=== PATIENT | male | born 1945 | race Caucasian/White ===

== ENCOUNTER 2016-07-20 10:34 | Outpatient (CLI) | payer MEDICARE, OTHER | END 2016-07-20 10:35 | disposition home or self-care (01) | DX: J98.4 Other disorders of lung (principal); J45.909 Unspecified asthma, uncomplicated ==

== ENCOUNTER 2016-07-24 23:42 | Emergency (ER) | payer MEDICARE, OTHER ==
[2016-07-25] MEDS ORDERED: IOPAMIDOL-300 100 ML VIAL IVP ONE (03:03)
[2016-07-25] MEDS ORDERED: ASPIRIN CHEW 81 MG TABLET PO STA (03:53)
[2016-07-25] MEDS ORDERED: HEPARIN 5,000 UNIT/ML VIAL IVP STA ×2 (04:00→04:01)
[2016-07-25] MEDS ORDERED: HEPARIN 25,000 UNITS/500 ML 500 ML IV STA (04:01)
[2016-07-25] MEDS ORDERED: ASPIRIN CHEW 81 MG TABLET ONE (04:04)
[2016-07-25] MEDS ORDERED: HEPARIN 5,000 UNIT/ML VIAL ONE (04:04)
[2016-07-25] MEDS ORDERED: HEPARIN 25,000 UNITS/500 ML 500 ML IV ONE (04:05)
[2016-07-25] MEDS ORDERED: SODIUM CHLORIDE 0.9% 500 ML IV STA (08:32)
== END 2016-07-25 08:56 | disposition short-term general hospital (02) ==
DX: R07.89 Other chest pain (principal); R01.1 Cardiac murmur, unspecified; I25.10 Atherosclerotic heart disease of native coronary artery without angina pectoris; I71.2 Thoracic aortic aneurysm, without rupture; I10 Essential (primary) hypertension
CPT/HCPCS: 36415; 71020; 71275; 80053; 83690; 84484; 85025; 93005; 93010; 96365; 96366; 96375; 99285; A9270; Q9967

== ENCOUNTER 2016-07-25 09:06 | Outpatient (CLI) | payer MEDICARE, OTHER | END 2016-07-25 09:07 | disposition short-term general hospital (02) | DX: R07.9 Chest pain, unspecified (principal) | CPT/HCPCS: A0425; A0426 ==

== ENCOUNTER 2016-08-05 08:11 | Emergency (ER) | payer MEDICARE, OTHER ==
[2016-08-05 08:25] VITALS: BP 140/84
[2016-08-05] MEDS ORDERED: HYDROcod/ACETAM 5/325 MG TABLET PO STA (08:34)
[2016-08-05] MEDS ORDERED: HYDROcod/ACETAM 5/325 MG TABLET ONE (08:38)
--- NOTE | 2016-08-05 08:56 | ED Physician Documentation ---
PD HPI NECK PAIN - Stated complaint Stated Complaint: NECK PX - Chief complaint Chief Complaint: General - History obtained from History obtained from: Patient, Family (Spouse) - History of Present Illness Timing - onset: How many days ago (4) Timing - duration: Days (4) Timing - details: Waxing and waning Location: Mid, Right, Left Quality: Aching, Similar to prior episodes Associated symptoms: No: Fever, Weakness, Numbness Worsened by: Movement Recently seen: Surgery (Cardiac Cath 11 days ago.) - Additional information Additional information: The patient is a 70-year-old male who complains of "muscle tightness" of his neck. His symptoms started 4 days ago and they have been waxing and waning since onset. He denies any recent injury. He reports having similar pain intermittently in the past, but never this bad. He denies, numbness or weakness , or headache currently. He had a headache yesterday that was relieved with Naprosyn. 11 days ago he underwent cardiac catheterization, and his anti- hypertensive medication was changed from lisinopril to diltiazem. He normally takes Aleve on a daily basis, but his galley boy instructed him to discontinue Aleve. Review of Systems Constitutional: denies: Fever Ears: denies: Tinnitus/ringing Nose: denies: Congestion Throat: denies: Sore throat Cardiac: denies: Chest pain / pressure, Palpitations Respiratory: denies: Dyspnea, Cough GI: denies: Abdominal Pain, Nausea, Vomiting : denies: Dysuria Skin: denies: Rash Musculoskeletal: reports: Neck pain. denies: Back pain, Extremity pain, Extremity swelling Neurologic: denies: Focal weakness, Numbness, Headache PD PAST MEDICAL HISTORY - Past Medical History Past Medical History: Yes Cardiovascular: Hypertension, Coronary artery disease, Valve disorder, Other : Incontinence Other Past Medical History: aortic aneurysm - Past Surgical History Past Surgical History: Yes - Present Medications Home Medications: Ambulatory Orders Medication Instructions Recorded Confirmed Celecoxib [CeleBREX] 200 mg PO DAILY PRN 10/16/15 07/25/16 Cholecalciferol (Vitamin D3) 1,000 unit PO DAILY 10/16/15 07/25/16 [Vitamin D3] Cholestyramine [Questran] 4 mg PO DAILY 10/16/15 07/25/16 Levalbuterol Tartrate [Xopenex Hfa] 1 puffs INH DAILY 10/16/15 07/25/16 Vitamin B Complex 1 tab PO DAILY 10/16/15 08/05/16 Mometasone/Formoterol [Dulera 200 2 puffs PO BID 07/25/16 08/05/16 Mcg/5 Mcg Inhaler] HYDROcod/ACETAM 5/325 [[place] 5/325] 1 - 2 ea PO Q6H PRN #20 tablet 08/05/16 diltiaZEM [Cardizem] 08/05/16 - Allergies Allergies/Adverse Reactions: Allergies Allergy/AdvReac Type Severity Reaction Status Date / Time No Known Drug Allergies Allergy Verified 10/16/15 20:07 - Living Situation Living Situation: reports: With spouse/s.o. Living Arrangement: reports: At home - Social History Does the pt smoke?: No Smoking Status: Never smoker Does the pt drink ETOH?: No Does the pt have substance abuse?: No - Immunizations Immunizations are current?: Yes - POLST Patient has POLST: No PD ED PE NORMAL - Vitals Vital signs reviewed: Yes (Borderline hypertension initially.) - General General: Alert and oriented X 3, Well developed/nourished - HEENT HEENT: Atraumatic, EOMI, Pharynx benign - Neck Neck: Supple, no meningeal sign, No bony TTP, No adenopathy, No JVD, Other ( Holding his head straight forward. Mild paracervical muscular tenderness to palpation bilaterally. No tenderness to palpation over the spinous processes. He is able to rotate his head about 20 each direction. There is no meningismus.) - Cardiac Cardiac: RRR - Respiratory Respiratory: No respiratory distress, Clear bilaterally - Abdomen Abdomen: Soft, Non tender - Back Back: No CVA TTP, No spinal TTP - Derm Derm: No rash - Extremities Extremities: No edema, No calf tenderness / cord - Neuro Neuro: Alert and oriented X 3, No motor deficit, Normal speech Results - Vitals Vitals: Oxygen O2 Source Room air PD MEDICAL DECISION MAKING - ED course Complexity details: considered differential, d/w patient, d/w family ED course: The patient's presentation is most consistent with cervical muscle strain. There is no clinical evidence of cardiac etiology for the patient's neck pain, and no meningismus, or evidence of central nervous system etiology or cervical spinous bony abnormality. Treatment in the emergency department included administration of Vicodin, one tablet. He is being discharged with prescription for Vicodin, 20 tablets. I discussed with him and his symptomatic treatment, outpatient follow-up, as well as potentially worrisome signs or symptoms that should prompt reevaluation in the emergency department. Departure - Departure Disposition: 01 Home, Self Care Clinical Impression: Cervical muscle strain Qualifiers: Encounter type: initial encounter Qualified Code(s): S16.1XXA - Strain of muscle, fascia and tendon at neck level, initial encounter Condition: Stable Instructions: ED Neck Pain No Trauma Follow-Up: Gabby Sheriff MD [Primary Care Provider] - Prescriptions: HYDROcod/ACETAM 5/325 [[place] 5/325] 1 - 2 ea PO Q6H PRN #20 tablet PRN Reason: Pain Comments: Apply icepack to your sore areas intermittently over the next 3 or 4 days. You can use Vicodin as prescribed if needed for pain. When not using Vicodin, you can use acetaminophen/Tylenol. Follow up with your primary physician within one to 2 weeks. Call to schedule an appointment. Return to the emergency department if you develop increasing pain in your neck, or otherwise worsening symptoms. Discharge Date/Time: 08/05/16 09:05
== END 2016-08-05 09:05 | disposition home or self-care (01) ==
LOC: ED 08:11
DX: S16.1XXA Strain of muscle, fascia and tendon at neck level, initial encounter (principal); X58.XXXA Exposure to other specified factors, initial encounter; I10 Essential (primary) hypertension; I25.10 Atherosclerotic heart disease of native coronary artery without angina pectoris; Z98.61 Coronary angioplasty status
CPT/HCPCS: 99283; A9270

== ENCOUNTER 2016-09-21 14:50 | Outpatient (CLI) | payer MEDICARE, OTHER ==
[2016-09-21 15:16] LABS: CALCIUM 9.4 mg/dL (8.5-10.3); CREATININE 1.3 mg/dL (0.6-1.2); POTASSIUM 4.4 mmol/L (3.5-5.0)
== END 2016-09-21 14:51 | disposition home or self-care (01) ==
LOC: LAB 14:50
PROVIDERS: ATTEND Nurse Practitioner Family
DX: R06.02 Shortness of breath (principal)
CPT/HCPCS: 36415; 80048; 83880

== ENCOUNTER 2016-09-27 11:30 | Outpatient (CLI) | payer MEDICARE, OTHER ==
[2016-09-27 12:18] LABS: CALCIUM 9.1 mg/dL (8.5-10.3); CREATININE 1.2 mg/dL (0.6-1.2); POTASSIUM 4.1 mmol/L (3.5-5.0)
== END 2016-09-27 11:31 | disposition home or self-care (01) ==
LOC: LAB 11:30
PROVIDERS: ATTEND Nurse Practitioner Family
DX: R06.02 Shortness of breath (principal)
CPT/HCPCS: 36415; 80048; 83880

== ENCOUNTER 2017-10-14 07:47 | Outpatient (CLI) | payer MEDICARE, OTHER ==
[2017-10-14 08:42] LABS: HGB - HEMOGLOBIN 15.7 g/dL (14.0-18.0); MEAN CORPUSCULAR HEMOGLOBIN 30.7 pg (27.0-31.0); MEAN CORPUSCULAR HGB CONC 33.4 g/dL (32.0-36.0); MEAN PLATELET VOLUME 7.5 fL (7.4-11.4); RED BLOOD COUNT 5.12 10^6/uL (4.70-6.10); RED CELL DISTRIBUTION WIDTH 12.9 % (12.0-15.0)
[2017-10-14 08:52] LABS: ALBUMIN 3.9 g/dL (3.2-5.5); ALBUMIN/GLOBULIN RATIO 1.4 (1.0-2.2); ALKALINE PHOSPHATASE 69 IU/L (42-121); ALT ALANINE AMINOTRANSFERASE 14 IU/L (10-60); AST ASPARTATE AMINOTRANSFERASE 22 IU/L (10-42); BUN - BLOOD UREA NITROGEN 19 mg/dL (6-20); CARBON DIOXIDE - CO2 25 mmol/L (21-32); CHLORIDE 105 mmol/L (101-111); CHOL/HDL RATIO 3.5 (<5.0); CHOLESTEROL 195 mg/dL; CREATININE 1.2 mg/dL (0.6-1.2); GFR - MDRD 60 (>89); GLUCOSE 91 mg/dL (70-100); HDL CHOLESTEROL 55 mg/dL; LDL CHOLESTEROL,CALCULATED 125 mg/dL; LDL/HDL RATIO 2.3 (<3.6); SODIUM 139 mmol/L (135-145); TOTAL PROTEIN 6.7 g/dL (6.7-8.2); VLDL CHOLESTEROL 15 mg/dL
[2017-10-14 08:56] LABS: BILIRUBIN,URINE NEGATIVE (NEGATIVE); CLARITY,URINE CLEAR (CLEAR); GLUCOSE, URINE (UA) NEGATIVE (NEGATIVE); KETONES,URINE (UA) NEGATIVE (NEGATIVE); LEUKOCYTE ESTERASE, URINE NEGATIVE (NEGATIVE); NITRITE,URINE NEGATIVE (NEGATIVE); OCCULT BLOOD,URINE NEGATIVE (NEGATIVE); PROTEIN,URINE NEGATIVE (NEGATIVE); UROBILINOGEN,URINE 0.2 (NORMAL) E.U./dL (NORMAL)
== END 2017-10-14 07:48 | disposition home or self-care (01) ==
LOC: LAB 07:47
PROVIDERS: ATTEND Internal Medicine
DX: I10 Essential (primary) hypertension (principal); Z12.5 Encounter for screening for malignant neoplasm of prostate; E78.5 Hyperlipidemia, unspecified; C61 Malignant neoplasm of prostate; Z79.899 Other long term (current) drug therapy; M12.9 Arthropathy, unspecified
CPT/HCPCS: 36415; 80053; 80061; 81003; 84443; 85027; G0103; 83721; 84153

== ENCOUNTER 2017-10-20 10:57 | Outpatient (CLI) | payer MEDICARE, OTHER ==
--- NOTE | 2017-10-20 14:40 | XRAY Report ---
Procedure Date: 10/20/2017 Accession Number: [id number] / [id number] Procedure: XR - Hand 3 View RT CPT Code: FULL RESULT: EXAM: Wrist 4 View RT, Hand 3 View RT DATE: 10/20/2017 11:46 AM CLINICAL HISTORY: SPRAIN OF UNSPECIFIED PART OF RIGHT WRIST HAND COMPARISON: None. TECHNIQUE: 3 views of the right hand and 4 views of the right wrist. FINDINGS: Wrist including carpal bones: Negative ulnar variance, 8 mm. Suggestion of ulnar impaction. Subchondral cyst formation in distal radius and ulna. Widening of the lunatotriquetral interval. 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 Right hand excluding carpal bones: No fracture or dislocation. Relatively mild degenerative changes of the phalanges and metacarpals. 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 RADIA
--- NOTE | 2017-10-20 14:40 | XRAY Report ---
Procedure Date: 10/20/2017 Accession Number: [id number] / [id number] Procedure: XR - Wrist 4 View RT CPT Code: FULL RESULT: EXAM: Wrist 4 View RT, Hand 3 View RT DATE: 10/20/2017 11:46 AM CLINICAL HISTORY: SPRAIN OF UNSPECIFIED PART OF RIGHT WRIST HAND COMPARISON: None. TECHNIQUE: 3 views of the right hand and 4 views of the right wrist. FINDINGS: Wrist including carpal bones: Negative ulnar variance, 8 mm. Suggestion of ulnar impaction. Subchondral cyst formation in distal radius and ulna. Widening of the lunatotriquetral interval. 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 Right hand excluding carpal bones: No fracture or dislocation. Relatively mild degenerative changes of the phalanges and metacarpals. 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 RADIA
== END 2017-10-20 10:58 | disposition home or self-care (01) ==
LOC: DI 10:57
PROVIDERS: ATTEND Internal Medicine
DX: S63.91XA Sprain of unspecified part of right wrist and hand, initial encounter (principal)

== ENCOUNTER 2017-11-27 07:37 | Outpatient (CLI) | payer MEDICARE, OTHER ==
[2017-11-27 08:11] LABS: CREATININE 1.3 mg/dL (0.6-1.2)
== END 2017-11-27 07:38 | disposition home or self-care (01) ==
LOC: LAB 07:37
PROVIDERS: ATTEND Internal Medicine
DX: I10 Essential (primary) hypertension (principal); E78.5 Hyperlipidemia, unspecified; Z79.899 Other long term (current) drug therapy
CPT/HCPCS: 36415; 80048

== ENCOUNTER 2018-10-12 07:15 | Outpatient (CLI) | payer MEDICARE, OTHER ==
[2018-10-12 07:46] LABS: BASOPHILS # (AUTO) 0.1 10^3/uL (0.0-0.1); BASOPHILS % (AUTO) 0.8 %; EOSINOPHILS # (AUTO) 0.4 10^3/uL (0.0-0.7); EOSINOPHILS % (AUTO) 6.2 %; HGB - HEMOGLOBIN 15.5 g/dL (14.0-18.0); LYMPHOCYTES # (AUTO) 1.9 10^3/uL (1.5-3.5); LYMPHOCYTES % (AUTO) 28.6 %; MEAN CORPUSCULAR HEMOGLOBIN 30.5 pg (27.0-31.0); MEAN CORPUSCULAR HGB CONC 33.3 g/dL (32.0-36.0); MEAN CORPUSCULAR VOLUME 91.6 fL (80.0-94.0); MEAN PLATELET VOLUME 9.3 fL (7.4-11.4); MONOCYTES # (AUTO) 0.6 10^3/uL (0.0-1.0); MONOCYTES % (AUTO) 9.1 %; NEUTROPHILS # (AUTO) 3.6 10^3/uL (1.5-6.6); NEUTROPHILS % (AUTO) 55.1 %; PLT - PLATELET COUNT 283 10^3/uL (130-450); RED BLOOD COUNT 5.09 10^6/uL (4.70-6.10); RED CELL DISTRIBUTION WIDTH 12.6 % (12.0-15.0); WHITE BLOOD COUNT 6.6 x10^3/uL (4.8-10.8)
[2018-10-12 08:04] LABS: ALBUMIN/GLOBULIN RATIO 1.4 (1.0-2.2); ALKALINE PHOSPHATASE 67 IU/L (42-121); ALT ALANINE AMINOTRANSFERASE 17 IU/L (10-60); AST ASPARTATE AMINOTRANSFERASE 20 IU/L (10-42); BILIRUBIN,TOTAL 0.7 mg/dL (0.2-1.0); BUN - BLOOD UREA NITROGEN 18 mg/dL (6-20); CALCIUM 9.4 mg/dL (8.5-10.3); CARBON DIOXIDE - CO2 25 mmol/L (21-32); CHLORIDE 107 mmol/L (101-111); CHOL/HDL RATIO 3.7 (<5.0); CHOLESTEROL 197 mg/dL; CREATININE 1.1 mg/dL (0.6-1.2); GFR - MDRD 66 (>89); GLUCOSE 92 mg/dL (70-100); HDL CHOLESTEROL 53 mg/dL; LDL CHOLESTEROL,CALCULATED 116 mg/dL; LDL/HDL RATIO 2.2 (<3.6); SODIUM 143 mmol/L (135-145); TOTAL PROTEIN 6.8 g/dL (6.7-8.2); VLDL CHOLESTEROL 28 mg/dL
== END 2018-10-12 07:16 | disposition home or self-care (01) ==
LOC: LAB 07:15
PROVIDERS: ATTEND Internal Medicine
DX: I10 Essential (primary) hypertension (principal); Z12.5 Encounter for screening for malignant neoplasm of prostate; I42.0 Dilated cardiomyopathy; E78.5 Hyperlipidemia, unspecified; E78.00 Pure hypercholesterolemia, unspecified; C61 Malignant neoplasm of prostate; E66.9 Obesity, unspecified; Z79.899 Other long term (current) drug therapy
CPT/HCPCS: 36415; 80061; G0103; 80053; 83721; 84153; 84443; 85025

== ENCOUNTER 2019-10-17 08:10 | Outpatient (CLI) | payer MEDICARE, OTHER ==
[2019-10-17 08:43] LABS: BASOPHILS # (AUTO) 0.1 10^3/uL (0.0-0.1); BASOPHILS % (AUTO) 0.9 %; EOSINOPHILS # (AUTO) 0.5 10^3/uL (0.0-0.7); EOSINOPHILS % (AUTO) 7.3 %; HGB - HEMOGLOBIN 16.2 g/dL (14.0-18.0); LYMPHOCYTES # (AUTO) 1.8 10^3/uL (1.5-3.5); MEAN CORPUSCULAR HEMOGLOBIN 30.1 pg (27.0-31.0); MEAN CORPUSCULAR HGB CONC 33.5 g/dL (32.0-36.0); MEAN CORPUSCULAR VOLUME 89.8 fL (80.0-94.0); MEAN PLATELET VOLUME 9.2 fL (7.4-11.4); MONOCYTES # (AUTO) 0.6 10^3/uL (0.0-1.0); MONOCYTES % (AUTO) 8.4 %; NEUTROPHILS # (AUTO) 3.8 10^3/uL (1.5-6.6); NEUTROPHILS % (AUTO) 56.1 %; PLT - PLATELET COUNT 313 10^3/uL (130-450); RED BLOOD COUNT 5.39 10^6/uL (4.70-6.10); RED CELL DISTRIBUTION WIDTH 14.5 % (12.0-15.0); WHITE BLOOD COUNT 6.8 x10^3/uL (4.8-10.8)
[2019-10-17 08:46] LABS: ALBUMIN 4.7 g/dL (3.2-5.5); ALBUMIN/GLOBULIN RATIO 1.7 (1.0-2.2); ALKALINE PHOSPHATASE 61 IU/L (42-121); ALT ALANINE AMINOTRANSFERASE 16 IU/L (10-60); AST ASPARTATE AMINOTRANSFERASE 19 IU/L (10-42); BILIRUBIN,TOTAL 1.2 mg/dL (0.2-1.0); BUN - BLOOD UREA NITROGEN 20 mg/dL (6-20); CALCIUM 9.8 mg/dL (8.5-10.3); CARBON DIOXIDE - CO2 26 mmol/L (21-32); CHLORIDE 104 mmol/L (101-111); CHOL/HDL RATIO 3.1 (<5.0); CHOLESTEROL 206 mg/dL; CREATININE 1.1 mg/dL (0.6-1.2); GLUCOSE 93 mg/dL (70-100); HDL CHOLESTEROL 67 mg/dL; LDL CHOLESTEROL,CALCULATED 125 mg/dL; LDL/HDL RATIO 1.9 (<3.6); SODIUM 139 mmol/L (135-145); TOTAL PROTEIN 7.5 g/dL (6.7-8.2); VLDL CHOLESTEROL 14 mg/dL
== END 2019-10-17 08:11 | disposition home or self-care (01) ==
LOC: LAB 08:10
PROVIDERS: ATTEND Internal Medicine
DX: I10 Essential (primary) hypertension (principal); C61 Malignant neoplasm of prostate; E66.9 Obesity, unspecified; E78.5 Hyperlipidemia, unspecified; Z79.899 Other long term (current) drug therapy
CPT/HCPCS: 36415; 80053; 80061; 83721; 84153; 84443; 85025

== ENCOUNTER 2020-01-31 07:52 | Day surgery (SDC) | payer MEDICARE, OTHER ==
[2020-01-31] MEDS ORDERED: fentaNYL 250 MCG/5 ML VIAL IVP ONE (07:53)
[2020-01-31] MEDS ORDERED: MIDAZOLAM 2 MG/2 ML VIAL IVP ONE (07:53)
[2020-01-31] MEDS ORDERED: LACTATED RINGERS 1,000 ML IV ONE ×2 (08:10→10:14)
[2020-01-31 10:56] VITALS: BP 92/56
== END 2020-01-31 07:53 | disposition home or self-care (01) ==
LOC: SDS 07:52
PROVIDERS: ATTEND Surgery
PROC: 0DBK8ZZ Excision of Ascending Colon, Via Natural or Artificial Opening Endoscopic (ICD-10-PCS; principal; 2020-01-31 09:00)
DX: Z12.11 Encounter for screening for malignant neoplasm of colon (principal); D12.2 Benign neoplasm of ascending colon; K57.30 Diverticulosis of large intestine without perforation or abscess without bleeding; K64.8 Other hemorrhoids; I10 Essential (primary) hypertension
CPT/HCPCS: 45380; J3010; J7120

== ENCOUNTER 2020-09-04 08:06 | Outpatient (CLI) | payer MEDICARE, OTHER ==
[2020-09-04 08:30] LABS: CALCIUM 9.7 mg/dL (8.5-10.3); CREATININE 1.1 mg/dL (0.6-1.2); POTASSIUM 3.8 mmol/L (3.5-5.0)
== END 2020-09-04 08:07 | disposition home or self-care (01) ==
LOC: LAB 08:06
PROVIDERS: ATTEND Nurse Practitioner Family
DX: I10 Essential (primary) hypertension (principal)
CPT/HCPCS: 36415; 80048

== ENCOUNTER 2020-09-23 10:52 | Outpatient (CLI) | payer MEDICARE, OTHER ==
--- NOTE | 2020-09-23 12:49 | XRAY Report ---
PROCEDURE: Chest 2 View X-Ray INDICATIONS: ASTHMA TECHNIQUE: 2 view(s) of the chest. COMPARISON: CT chest 07/25/2016 FINDINGS: Surgical changes and devices: None. Lungs and pleura: No pleural effusions or pneumothorax. Lungs are clear. Mediastinum: Mediastinal contours are normal. Heart size is normal. Bones and chest wall: No suspicious bony abnormalities. Soft tissues appear unremarkable. IMPRESSION: No acute pulmonary process. Reviewed by: Raina Stacy MD on 09/23/2020 12:48 PM PDT Approved by: Raina Stacy MD on 09/23/2020 12:48 PM PDT Station ID: [id number]
== END 2020-09-23 10:53 | disposition home or self-care (01) ==
LOC: DI 10:52
PROVIDERS: ATTEND Internal Medicine
DX: J45.998 Other asthma (principal)

== ENCOUNTER 2020-11-08 15:31 | Emergency (ER) | payer MEDICARE, OTHER ==
[2020-11-08 16:09] LABS: BASOPHILS # (AUTO) 0.1 10^3/uL (0.0-0.1); BASOPHILS % (AUTO) 0.7 %; EOSINOPHILS # (AUTO) 0.8 10^3/uL (0.0-0.7); EOSINOPHILS % (AUTO) 7.8 %; HGB - HEMOGLOBIN 15.8 g/dL (14.0-18.0); LYMPHOCYTES # (AUTO) 2.2 10^3/uL (1.5-3.5); LYMPHOCYTES % (AUTO) 22.6 %; MEAN CORPUSCULAR HEMOGLOBIN 30.4 pg (27.0-31.0); MEAN CORPUSCULAR HGB CONC 32.9 g/dL (32.0-36.0); MEAN CORPUSCULAR VOLUME 92.3 fL (80.0-94.0); MEAN PLATELET VOLUME 8.9 fL (7.4-11.4); MONOCYTES # (AUTO) 0.9 10^3/uL (0.0-1.0); MONOCYTES % (AUTO) 9.4 %; NEUTROPHILS # (AUTO) 5.8 10^3/uL (1.5-6.6); NEUTROPHILS % (AUTO) 59.2 %; PLT - PLATELET COUNT 322 10^3/uL (130-450); RED CELL DISTRIBUTION WIDTH 13.1 % (12.0-15.0); WHITE BLOOD COUNT 9.8 x10^3/uL (4.8-10.8)
--- NOTE | 2020-11-08 16:09 | XRAY Report ---
PROCEDURE: Chest 1 View X-Ray INDICATIONS: Chest pain TECHNIQUE: One view of the chest was acquired. COMPARISON: 09/23/2020 FINDINGS: Surgical changes and devices: None. Lungs and pleura: No pleural effusions or pneumothorax. Lungs are clear. Mediastinum: Mediastinal contours appear normal. Heart size is normal. Bones and chest wall: No suspicious bony lesions. Overlying soft tissues appear unremarkable. IMPRESSION: No acute cardiopulmonary findings Reviewed by: Antinoe Polanco MD on 11/08/2020 3:08 PM [facility] Approved by: Antione Polanco MD on 11/08/2020 3:08 PM [facility] Station ID: [id number]
--- NOTE | 2020-11-08 16:20 | ED Physician Documentation ---
PD HPI CHEST PAIN - Stated complaint Stated Complaint: CP,LIGHTHEADED - Chief complaint Chief Complaint: Cardiac - History obtained from History obtained from: Patient - Additional information Additional information: 74-year-old gentleman with history of hokum and known 5 cm ascending aortic aneurysm presents with chest pain starting while driving around 12:30 PM today. It radiates to the back. He is fatigued with it. He denies pedal edema or calf pain. It feels similar to a prior episode of pleurisy. Review of Systems Ten Systems: 10 systems reviewed and negative Constitutional: reports: Fatigue. denies: Fever, Chills Cardiac: denies: Palpitations Respiratory: denies: Cough PD PAST MEDICAL HISTORY - Past Medical History Cardiovascular: Hypertension, Coronary artery disease, Valve disorder, Other : Incontinence - Past Surgical History Past Surgical History: Yes - Present Medications Home Medications: Ambulatory Orders Medication Instructions Recorded Confirmed Cholecalciferol (Vitamin D3) 1,000 unit PO DAILY 10/16/15 01/31/20 [Vitamin D3] Cholestyramine [Questran] 4 mg PO DAILY 10/16/15 01/31/20 Levalbuterol Tartrate [Xopenex Hfa] 1 puffs INH DAILY 10/16/15 01/31/20 Vitamin B Complex 1 tab PO DAILY 10/16/15 01/31/20 Valsartan [Diovan] 40 mg PO DAILY 01/31/20 01/31/20 Amoxicillin 2 tab PO TID #60 cap 11/08/20 - Allergies Allergies/Adverse Reactions: Allergies Allergy/AdvReac Type Severity Reaction Status Date / Time metoprolol Allergy Respiratory Verified 11/08/20 15:45 - Social History Does the pt smoke?: No Smoking Status: Never smoker Does the pt drink ETOH?: No Does the pt have substance abuse?: No - Immunizations Immunizations are current?: Yes - POLST Patient has POLST: No PD ED PE NORMAL - Vitals Vital signs reviewed: Yes - General General: Alert and oriented X 3, No acute distress - HEENT HEENT: PERRL, EOMI - Neck Neck: Supple, no meningeal sign, No bony TTP - Cardiac Cardiac: RRR, No murmur - Respiratory Respiratory: No respiratory distress, Other (Mild expiratory wheezes throughout which she says are chronic) - Abdomen Abdomen: Non tender - Rectal Rectal: Deferred - Back Back: No CVA TTP, No spinal TTP - Derm Derm: Normal color, Warm and dry - Extremities Extremities: No edema, No calf tenderness / cord - Neuro Neuro: Alert and oriented X 3, Normal speech Results - Vitals Vitals: Vital Signs - 24 hr 11/08/20 11/08/20 11/08/20 15:45 15:51 16:21 Temperature 36.5 C Heart Rate 60 69 53 L Respiratory 16 15 15 Rate Blood Pressure 150/90 H 148/92 H 146/91 H O2 Saturation 98 96 95 11/08/20 11/08/20 11/08/20 17:00 17:30 17:48 Temperature Heart Rate 53 L 53 L 53 L Respiratory 14 Rate Blood Pressure 152/92 H 155/90 H 122/79 O2 Saturation 96 90 L 11/08/20 11/08/20 11/08/20 18:00 18:24 18:30 Temperature 36.2 C L Heart Rate 65 64 Respiratory 15 18 Rate Blood Pressure 133/86 H 131/86 H O2 Saturation 97 97 11/08/20 19:01 Temperature Heart Rate 61 Respiratory 19 Rate Blood Pressure 132/88 H O2 Saturation 98 Oxygen O2 Source Room air Oxygen Flow Rate 2 - EKG (time done) 1542 Rate: Rate (enter#) (63) Rhythm: NSR [place]: Normal Intervals: Normal CA Ischemia: Non specific changes. No: ST elevation c/w ischemia, ST elevation c/w repol, ST depression 1731 Rate: Rate (enter#) (53) Rhythm: NSR [place]: Normal Intervals: Normal [place] Ischemia: Non specific changes. No: ST elevation c/w ischemia, ST depression Compare to prior EKG: Unchanged from prior EKG - Labs Labs: Laboratory Tests 11/08/20 11/08/20 11/08/20 16:03 16:03 16:03 WBC 9.8 RBC 5.20 Hgb 15.8 Hct 48.0 MCV 92.3 MCH 30.4 MCHC 32.9 RDW 13.1 Plt Count 322 MPV 8.9 Neut # (Auto) 5.8 Lymph # (Auto) 2.2 [place] # (Auto) 0.9 Eos # (Auto) 0.8 H Baso # (Auto) 0.1 Absolute Nucleated RBC 0.00 Nucleated RBC % 0.0 Sodium 137 Potassium 4.1 Chloride 99 L Carbon Dioxide 29 Anion Gap 9.0 BUN 18 Creatinine 1.2 Estimated GFR (MDRD) 59 L Glucose 107 H Calcium 9.5 Total Bilirubin 0.8 AST 22 ALT 15 Alkaline Phosphatase 78 Troponin I High Sens 6.0 Total Protein 7.4 Albumin 4.5 Globulin 2.9 Albumin/Globulin Ratio 1.6 Lipase 33 11/08/20 18:04 WBC RBC Hgb Hct MCV MCH MCHC RDW Plt Count MPV Neut # (Auto) Lymph # (Auto) [place] # (Auto) Eos # (Auto) Baso # (Auto) Absolute Nucleated RBC Nucleated RBC % Sodium Potassium Chloride Carbon Dioxide Anion Gap BUN Creatinine Estimated GFR (MDRD) Glucose Calcium Total Bilirubin AST ALT Alkaline Phosphatase Troponin I High Sens 5.4 Total Protein Albumin Globulin Albumin/Globulin Ratio Lipase - Rads (name of study) 1v cxr Radiology: EMP read contemporaneously (NAD) CTA Chest Radiology: EMP read contemporaneously (Stable 5 cm aortic aneurysm, minimal consolidation in the lingula and right lower lobe) PD MEDICAL DECISION MAKING - ED course ED course: Had an increase in pain around 5:30 PM. Repeat EKG was without any interval changes or ischemic findings. Nitroglycerin was ineffective. Pain did get better with Tylenol. He does report an increased over baseline cough, he has a chronic cough, and had borderline saturations here. CT showing bibasilar pneumonia which looks quite mild though. Covid test offered and declined. Departure - Departure Disposition: 01 Home, Self Care Clinical Impression: Chest pain, Pneumonia Condition: Good Record reviewed to determine appropriate education?: Yes Instructions: Pneumonia Dc Prescriptions: Amoxicillin 2 tab PO TID #60 cap Comments: As discussed, your aortic aneurysm is unchanged at 5 cm. You have mild pneumonia at both bases of your lungs. Heart testing is without evidence of anything active going on with your heart. Return for new or worsening symptoms, follow-up with your physician within the week. We gave you a first dose of antibiotics here today, but she need to fill the prescription tomorrow morning. Discharge Date/Time: 11/08/20 19:02
[2020-11-08 16:25] LABS: ALBUMIN 4.5 g/dL (3.2-5.5); ALBUMIN/GLOBULIN RATIO 1.6 (1.0-2.2); BILIRUBIN,TOTAL 0.8 mg/dL (0.2-1.0); CALCIUM 9.5 mg/dL (8.5-10.3); CREATININE 1.2 mg/dL (0.6-1.2); POTASSIUM 4.1 mmol/L (3.5-5.0); TOTAL PROTEIN 7.4 g/dL (6.7-8.2)
[2020-11-08] MEDS ORDERED: IOPAMIDOL-300 100 ML VIAL ONE (16:46)
[2020-11-08] MEDS ORDERED: ACETAMINOPHEN 325 MG TABLET PO STA (17:30)
[2020-11-08] MEDS ORDERED: NITROGLYCERIN SL 0.4 MG TABLET SL STA (17:30)
--- NOTE | 2020-11-08 17:58 | CT Report ---
PROCEDURE: ANGIO CHEST W/WO INDICATIONS: chest pain, aorta protocol, known ascending aneury CONTRAST: IV CONTRAST: Isovue 300 ml: 80 PO CONTRAST: *NO PO CONTRAST TECHNIQUE: After the administration of intravenous contrast, images were acquired from the pulmonary apices to t he posterior costophrenic angles. 3-dimensional maximum intensity projection (MIP) coronal and sagit donny reformats were then acquired through the thorax. For radiation dose reduction, the following was used: automated exposure control, adjustment of mA and/or kV according to patient size. COMPARISON: July 25, 2016 FINDINGS: Image quality: Excellent. Pulmonary arteries: Pulmonary arteries are normal in size, and demonstrate no intraluminal filling d efects to suggest central pulmonary embolism. Lungs and pleura: Minimal left upper lobe lingular atelectasis and/or infiltrate noted along the liane r fissure. There is patchy peripheral right lower lobe infiltrative change as well.. No pleural effu sions or pneumothorax. Central and peripheral airways are patent. Mediastinum: Heart size is normal, without pericardial effusion. No mediastinal or hilar adenopathy . Mild before meals and thoracic aortic aneurysm measures 5 cm, similar prior. Esophagus is normal i n caliber, without hiatal hernia. Bones and chest wall: No suspicious bony lesions. Ribs and thoracic spine appear intact throughout. No axillary or supraclavicular adenopathy. The thyroid is normal in size and there are no incident al findings. Abdomen: Visualized upper abdominal solid organs appear normal in the early arterial phase of enhanc ement. IMPRESSION: Small aortic aneurysm measures 5 cm, stable from 2017. No evidence of dissection or pulmonary emphyse ma present. Lingular minimal consolidation and/or infiltrate as well as patchy peripheral right lower lobe atelec tasis and or infiltrate. Reviewed by: Antione Polanco MD on 11/08/2020 4:56 PM [facility] Approved by: Antione Polanco MD on 11/08/2020 4:56 PM [facility] Station ID: [id number]
[2020-11-08] MEDS ORDERED: AMOXICILLIN 250 MG CAPSULE PO STA (18:36)
[2020-11-08] MEDS ORDERED: IOPAMIDOL-300 100 ML VIAL IVP ONE (18:44)
[2020-11-08 19:02] VITALS: BP 132/88
== END 2020-11-08 19:02 | disposition home or self-care (01) ==
LOC: ED 15:31
DX: J18.9 Pneumonia, unspecified organism (principal); R07.9 Chest pain, unspecified; I71.4 Abdominal aortic aneurysm, without rupture; I10 Essential (primary) hypertension; I25.10 Atherosclerotic heart disease of native coronary artery without angina pectoris
CPT/HCPCS: 36415; 71045; 71275; 80053; 83690; 84484; 85025; 93005; 99284; A9270; Q9967

== ENCOUNTER 2021-02-01 10:39 | Outpatient (CLI) | payer MEDICARE, OTHER ==
[2021-02-01 11:07] LABS: BASOPHILS # (AUTO) 0.1 10^3/uL (0.0-0.1); BASOPHILS % (AUTO) 0.9 %; EOSINOPHILS # (AUTO) 0.5 10^3/uL (0.0-0.7); EOSINOPHILS % (AUTO) 6.5 %; HCT - HEMATOCRIT 48.2 % (42.0-52.0); HGB - HEMOGLOBIN 15.9 g/dL (14.0-18.0); LYMPHOCYTES # (AUTO) 1.9 10^3/uL (1.5-3.5); LYMPHOCYTES % (AUTO) 23.5 %; MEAN CORPUSCULAR HEMOGLOBIN 30.5 pg (27.0-31.0); MEAN CORPUSCULAR VOLUME 92.3 fL (80.0-94.0); MEAN PLATELET VOLUME 8.8 fL (7.4-11.4); MONOCYTES # (AUTO) 0.7 10^3/uL (0.0-1.0); MONOCYTES % (AUTO) 8.5 %; NEUTROPHILS # (AUTO) 4.8 10^3/uL (1.5-6.6); NEUTROPHILS % (AUTO) 60.5 %; PLT - PLATELET COUNT 309 10^3/uL (130-450); RED BLOOD COUNT 5.22 10^6/uL (4.70-6.10); RED CELL DISTRIBUTION WIDTH 12.8 % (12.0-15.0)
== END 2021-02-01 10:40 | disposition home or self-care (01) ==
LOC: LAB 10:39
PROVIDERS: ATTEND Internal Medicine
DX: J45.909 Unspecified asthma, uncomplicated (principal)
CPT/HCPCS: 36415; 85025

== ENCOUNTER 2021-04-28 10:45 | Outpatient (CLI) | payer MEDICARE, OTHER ==
[2021-04-28 11:02] LABS: BASOPHILS % (AUTO) 0.5 %; EOSINOPHILS # (AUTO) 0.2 10^3/uL (0.0-0.7); HCT - HEMATOCRIT 47.1 % (42.0-52.0); HGB - HEMOGLOBIN 15.8 g/dL (14.0-18.0); LYMPHOCYTES # (AUTO) 1.6 10^3/uL (1.5-3.5); LYMPHOCYTES % (AUTO) 18.3 %; MEAN CORPUSCULAR HEMOGLOBIN 30.3 pg (27.0-31.0); MEAN CORPUSCULAR HGB CONC 33.5 g/dL (32.0-36.0); MEAN CORPUSCULAR VOLUME 90.2 fL (80.0-94.0); MEAN PLATELET VOLUME 8.8 fL (7.4-11.4); MONOCYTES # (AUTO) 0.8 10^3/uL (0.0-1.0); MONOCYTES % (AUTO) 8.7 %; NEUTROPHILS # (AUTO) 6.2 10^3/uL (1.5-6.6); NEUTROPHILS % (AUTO) 70.3 %; PLT - PLATELET COUNT 391 10^3/uL (130-450); RED BLOOD COUNT 5.22 10^6/uL (4.70-6.10); RED CELL DISTRIBUTION WIDTH 12.2 % (12.0-15.0); WHITE BLOOD COUNT 8.9 x10^3/uL (4.8-10.8)
== END 2021-04-28 10:46 | disposition home or self-care (01) ==
LOC: LAB 10:45
PROVIDERS: ATTEND Internal Medicine
DX: M25.539 Pain in unspecified wrist (principal); I10 Essential (primary) hypertension; G56.01 Carpal tunnel syndrome, right upper limb; Z79.899 Other long term (current) drug therapy
CPT/HCPCS: 36415; 84550; 85025; 85651

== ENCOUNTER 2021-05-28 14:02 | Outpatient (CLI) | payer MEDICARE, OTHER ==
[2021-05-28 14:19] LABS: BASOPHILS # (AUTO) 0.1 10^3/uL (0.0-0.1); BASOPHILS % (AUTO) 0.7 %; EOSINOPHILS # (AUTO) 0.5 10^3/uL (0.0-0.7); EOSINOPHILS % (AUTO) 5.4 %; HCT - HEMATOCRIT 46.2 % (42.0-52.0); HGB - HEMOGLOBIN 15.4 g/dL (14.0-18.0); LYMPHOCYTES % (AUTO) 22.9 %; MEAN CORPUSCULAR HEMOGLOBIN 30.3 pg (27.0-31.0); MEAN CORPUSCULAR HGB CONC 33.3 g/dL (32.0-36.0); MEAN CORPUSCULAR VOLUME 90.8 fL (80.0-94.0); MONOCYTES # (AUTO) 0.7 10^3/uL (0.0-1.0); NEUTROPHILS # (AUTO) 5.4 10^3/uL (1.5-6.6); NEUTROPHILS % (AUTO) 62.8 %; PLT - PLATELET COUNT 285 10^3/uL (130-450); RED BLOOD COUNT 5.09 10^6/uL (4.70-6.10); RED CELL DISTRIBUTION WIDTH 13.1 % (12.0-15.0); WHITE BLOOD COUNT 8.5 x10^3/uL (4.8-10.8)
[2021-05-28 14:33] LABS: BILIRUBIN,URINE NEGATIVE (NEGATIVE); GLUCOSE, URINE (UA) NEGATIVE (NEGATIVE); KETONES,URINE (UA) NEGATIVE (NEGATIVE); LEUKOCYTE ESTERASE, URINE NEGATIVE (NEGATIVE); NITRITE,URINE NEGATIVE (NEGATIVE); OCCULT BLOOD,URINE NEGATIVE (NEGATIVE); PROTEIN,URINE NEGATIVE (NEGATIVE); UROBILINOGEN,URINE 0.2 (NORMAL) E.U./dL (NORMAL)
[2021-05-28 14:34] LABS: ALBUMIN 3.9 g/dL (3.2-5.5); ALBUMIN/GLOBULIN RATIO 1.4 (1.0-2.2); BILIRUBIN,TOTAL 0.7 mg/dL (0.2-1.0); CALCIUM 9.4 mg/dL (8.5-10.3); CREATININE 1.1 mg/dL (0.6-1.2); POTASSIUM 4.1 mmol/L (3.5-5.0); TOTAL PROTEIN 6.7 g/dL (6.7-8.2)
[2021-05-28 14:42] LABS: CLARITY,URINE CLEAR (CLEAR)
[2021-05-28 15:37] LABS: BACTERIA,URINE None Seen /HPF (None Seen); CREATININE,URINE 20.3 mg/dL; MICROALBUM/CREATININE RATIO,UR 9.9 ug/mg (<30.0); MICROALBUMIN,URINE 0.2 mg/dL (0-300.0); RBC,URINE None Seen /HPF (0-5); SQUAMOUS EPITHELIAL CELL,UR NONE SEEN (<= Few); WBC,URINE 0-3 /HPF (0-3)
[2021-05-28 15:38] LABS: TOTAL PROTEIN,URINE TIMED < 6 mg/dL
== END 2021-05-28 14:03 | disposition home or self-care (01) ==
LOC: LAB 14:02
PROVIDERS: ATTEND Internal Medicine Nephrology
DX: N18.31 Chronic kidney disease, stage 3a (principal)
CPT/HCPCS: 36415; 80053; 81001; 82043; 82570; 84156; 85025; 87086

== ENCOUNTER 2022-02-07 09:59 | Outpatient (CLI) | payer MEDICARE, OTHER ==
--- NOTE | 2022-02-07 10:25 | XRAY Report ---
PROCEDURE: Chest 2 View X-Ray INDICATIONS: COUGH, UNSPECIFIED TECHNIQUE: 2 views of the chest were acquired. COMPARISON: 11/08/2020 (CT and plain film), 09/20/2020, 12/22/2015 FINDINGS: Surgical changes and devices: None. Lungs and pleura: No pleural effusions or pneumothorax. No acute pulmonary opacities. Mediastinum: Mediastinal contours are normal. Heart size is normal. There is aortic atherosclerosi s. Tortuosity of the aorta is seen. Bones and chest wall: No suspicious bony abnormalities. There is thoracic spine disc degeneration. There is accentuated thoracic kyphosis. Soft tissues appear unremarkable. IMPRESSION: No focal infiltrates are seen. Prominence and tortuosity is again seen of the thoracic aorta. Reviewed by: Caden Lugo MD on 02/07/2022 9:23 AM [facility] Approved by: Caden Lugo MD on 02/07/2022 9:23 AM [facility] Station ID: [id number]
== END 2022-02-07 10:00 | disposition home or self-care (01) ==
LOC: DI 09:59
PROVIDERS: ATTEND Internal Medicine
DX: R05.9 Cough, unspecified (principal)

== ENCOUNTER 2023-09-14 16:43 | Outpatient (CLI) | payer MEDICARE, OTHER ==
[2023-09-14 17:00] LABS: BASOPHILS # (AUTO) 0.1 10^3/uL (0.0-0.1); BASOPHILS % (AUTO) 0.8 %; EOSINOPHILS # (AUTO) 0.4 10^3/uL (0.0-0.7); EOSINOPHILS % (AUTO) 5.6 %; HGB - HEMOGLOBIN 15.8 g/dL (14.0-18.0); LYMPHOCYTES # (AUTO) 2.3 10^3/uL (1.5-3.5); LYMPHOCYTES % (AUTO) 29.1 %; MEAN CORPUSCULAR HEMOGLOBIN 30.1 pg (27.0-31.0); MEAN CORPUSCULAR HGB CONC 32.9 g/dL (32.0-36.0); MEAN CORPUSCULAR VOLUME 91.4 fL (80.0-94.0); MEAN PLATELET VOLUME 9.1 fL (7.4-11.4); MONOCYTES # (AUTO) 0.9 10^3/uL (0.0-1.0); MONOCYTES % (AUTO) 11.2 %; NEUTROPHILS # (AUTO) 4.2 10^3/uL (1.5-6.6); NEUTROPHILS % (AUTO) 53.2 %; PLT - PLATELET COUNT 330 10^3/uL (130-450); RED BLOOD COUNT 5.25 10^6/uL (4.70-6.10); WHITE BLOOD COUNT 7.9 x10^3/uL (4.8-10.8)
== END 2023-09-14 16:44 | disposition home or self-care (01) ==
LOC: LAB 16:43
PROVIDERS: ATTEND Physician Assistant
DX: J45.40 Moderate persistent asthma, uncomplicated (principal)
CPT/HCPCS: 36415; 82785; 85025

== ENCOUNTER 2023-10-04 16:46 | Outpatient (CLI) | payer MEDICARE, OTHER ==
--- NOTE | 2023-10-04 21:22 | XRAY Report ---
PROCEDURE: Lumbar Spine 2-3V INDICATIONS: LOW BACK PAIN TECHNIQUE: 3 views of the lumbar spine were acquired. COMPARISON: MRI lumbar spine 10/17/2012, chest x-ray 02/07/2022 FINDINGS: Surgical change: None. Bones: 5 [id number] vertebrae are present. Prominent leftward scoliotic curvature is present wi th apex at L2-3. Multilevel moderate to severe degenerative disc space narrowing most significant at T12-L1, L1-L2, L3-4, L4-5. Multilevel moderate to severe degenerative foraminal narrowing most severe from L3-4 through L5-S1. 68% compression deformity at T12 used since prior exam in 2021. Soft tissues: Overlying bowel gas pattern is normal. No suspicious soft tissue calcifications. IMPRESSION: Significant multilevel degenerative changes progressive since prior MRI. Compression deformity at T12, new compared to 2021. Otherwise, it is considered indeterminant increas ed density and recommend correlation point tenderness as well as history of recent trauma. Reviewed by: Raina Stacy MD on 10/04/2023 9:21 PM PDT Approved by: Raina Stacy MD on 10/04/2023 9:21 PM PDT Station ID: [id number]
== END 2023-10-04 16:47 | disposition home or self-care (01) ==
LOC: DI 16:46
PROVIDERS: ATTEND Internal Medicine
DX: M47.816 Spondylosis without myelopathy or radiculopathy, lumbar region (principal); M47.817 Spondylosis without myelopathy or radiculopathy, lumbosacral region; M43.8X4 Other specified deforming dorsopathies, thoracic region

== ENCOUNTER 2023-10-04 16:46 | Outpatient (CLI) | payer MEDICARE, OTHER ==
--- NOTE | 2023-10-05 08:42 | Ultrasound Report ---
PROCEDURE: Renal (Retroperitoneal) INDICATIONS: LOW BACK PAIN TECHNIQUE: Real-time scanning was performed of the retroperitoneal organs, with image documentation. COMPARISON: None. FINDINGS: Right kidney measures 11 cm the left kidney measures 12 cm. Cortex measures 1 to 1.1 cm bilaterally. Bilateral punctate echogenic foci are seen representing tiny nonobstructing stones or vascular calcif ications. Bilateral cysts, measuring up to 2.2 cm on the right and 2.7 x 3.4 cm on the left. No complicated or solid lesion identified by ultrasound. Prostatectomy. Patient did not void. Prevoid bladder volume is 109 cc. Ureteral jets were not seen. N o hydronephrosis identified on ultrasound. IMPRESSION: No hydronephrosis bilaterally. Patient was unable to void. Post void residual was not obtained. Bilateral punctate renal foci representing tiny nonobstructing stones versus small vascular calcifica tions. If further clarification is desired, consider CT KUB. Reviewed by: Wilfrid Hayden MD on 10/05/2023 8:40 AM PDT Approved by: Wilfrid Hayden MD on 10/05/2023 8:40 AM PDT Station ID: [id number]
== END 2023-10-04 16:47 | disposition home or self-care (01) ==
LOC: DI 16:46
PROVIDERS: ATTEND Internal Medicine
DX: R10.9 Unspecified abdominal pain (principal); M54.50 Low back pain, unspecified

== ENCOUNTER 2023-10-13 08:17 | Outpatient (CLI) | payer MEDICARE, OTHER ==
[2023-10-13 08:32] LABS: BASOPHILS # (AUTO) 0.1 10^3/uL (0.0-0.1); BASOPHILS % (AUTO) 0.8 %; EOSINOPHILS # (AUTO) 0.5 10^3/uL (0.0-0.7); EOSINOPHILS % (AUTO) 6.8 %; HCT - HEMATOCRIT 48.5 % (42.0-52.0); HGB - HEMOGLOBIN 16.1 g/dL (14.0-18.0); LYMPHOCYTES # (AUTO) 2.3 10^3/uL (1.5-3.5); LYMPHOCYTES % (AUTO) 28.6 %; MEAN CORPUSCULAR HEMOGLOBIN 30.1 pg (27.0-31.0); MEAN CORPUSCULAR HGB CONC 33.2 g/dL (32.0-36.0); MEAN CORPUSCULAR VOLUME 90.8 fL (80.0-94.0); MONOCYTES # (AUTO) 0.8 10^3/uL (0.0-1.0); MONOCYTES % (AUTO) 9.9 %; NEUTROPHILS # (AUTO) 4.3 10^3/uL (1.5-6.6); NEUTROPHILS % (AUTO) 53.8 %; PLT - PLATELET COUNT 305 10^3/uL (130-450); RED BLOOD COUNT 5.34 10^6/uL (4.70-6.10); RED CELL DISTRIBUTION WIDTH 13.2 % (12.0-15.0)
[2023-10-13 08:48] LABS: ALBUMIN 4.4 g/dL (3.2-5.5); ALBUMIN/GLOBULIN RATIO 1.7 (1.0-2.2); ALKALINE PHOSPHATASE 77 IU/L (42-121); ALT ALANINE AMINOTRANSFERASE 20 IU/L (10-60); AST ASPARTATE AMINOTRANSFERASE 24 IU/L (10-42); BUN - BLOOD UREA NITROGEN 21 mg/dL (6-20); CALCIUM 9.9 mg/dL (8.5-10.3); CARBON DIOXIDE - CO2 29 mmol/L (21-32); CHLORIDE 104 mmol/L (101-111); CHOL/HDL RATIO 3.1 (<5.0); CHOLESTEROL 214 mg/dL; CREATININE 1.2 mg/dL (0.6-1.3); GFR - MDRD 59 (>89); GLUCOSE 91 mg/dL (74-104); HDL CHOLESTEROL 68 mg/dL; LDL CHOLESTEROL,CALCULATED 128 mg/dL; LDL/HDL RATIO 1.9 (<3.6); SODIUM 138 mmol/L (135-145); TRIGLYCERIDES 89 mg/dL; VLDL CHOLESTEROL 18 mg/dL
== END 2023-10-13 08:18 | disposition home or self-care (01) ==
LOC: LAB 08:17
PROVIDERS: ATTEND Internal Medicine
DX: I42.9 Cardiomyopathy, unspecified (principal); E78.5 Hyperlipidemia, unspecified; C61 Malignant neoplasm of prostate; I10 Essential (primary) hypertension; M12.9 Arthropathy, unspecified; E55.9 Vitamin D deficiency, unspecified; E66.8 Other obesity
CPT/HCPCS: 36415; 80053; 80061; 81001; 83721; 84153; 84443; 85025; 87086

== ENCOUNTER 2023-10-14 14:15 | Outpatient (CLI) | payer MEDICARE, OTHER ==
--- NOTE | 2023-10-14 15:42 | CT Report ---
PROCEDURE: Abdomen/Pelvis WO INDICATIONS: R FLANK PAIN TECHNIQUE: A CT scan of the abdomen and pelvis was performed without the use of intravenous contrast. Images we re recorded and evaluated at appropriate window settings. Reformats: coronal and sagittal. For radiat ion dose reduction, the following was used: automated exposure control, adjustment of mA and/or kV ac cording to patient size. COMPARISON: MRI 08/31/2021 FINDINGS: Image quality: Diagnostic Lower chest: Bronchial wall thickening at the bases. No significant pulmonary nodule requiring follow -up. Scattered scarring and atelectasis. Possible tiny nodular areas, for example right costophrenic angle 11/19 can be followed with optional chest CT in one year for high-risk patients. Mild distal eso phageal wall thickening and patulous appearance, not well eval on this study Liver: No contour deforming mass. Solid organs are poorly evaluated without IV contrast Gallbladder and biliary system: Unremarkable, not dilated Pancreas: No ductal dilation Spleen: Nonenlarged Adrenals: No discrete nodules Kidneys: No contour deforming mass or hydronephrosis. Possible renal cysts. Nonobstructing stone in the left superior pole adjacent to the 3 mm. Vessels and lymph nodes: No abdominal aortic aneurysm. No pathologic lymph nodes by size criteria. Bowel and peritoneum: No evidence of small bowel obstruction. No pathologic ascites or drainable absc ess. Colonic diverticula are seen. Body wall: Fat-containing right greater left inguinal hernias. Pelvis: No calcified bladder stone. Prostate bed postsurgical changes. Pelvic sidewall lymph node dissection changes Bones: No acute or suspicious osseous finding. There are degenerative changes. Left for spinal curvature. IMPRESSION: No right hydronephrosis or obstructing calcified stone. Nonobstructing tiny left upper pole stone is seen. Pelvic postsurgical changes. No acute abnormality in the abdomen/pelvis on this noncontrast CT Reviewed by: Wilfrid Hayden MD on 10/14/2023 3:41 PM PDT Approved by: Wilfrid Hayden MD on 10/14/2023 3:41 PM PDT Station ID: [id number]
== END 2023-10-14 14:16 | disposition home or self-care (01) ==
LOC: DI 14:15
PROVIDERS: ATTEND Urology
DX: R10.9 Unspecified abdominal pain (principal); N20.0 Calculus of kidney